=== PATIENT | female | born 1995 | race Caucasian/White ===

== ENCOUNTER 2016-11-06 21:49 | Emergency (ER) | payer OTHER ==
[2016-11-06 22:33] LABS: SPECIFIC GRAVITY 1.025 (1.001-1.030); URINE BILIRUBIN NEGATIVE (NEGATIVE); URINE BLOOD 4+ (NEGATIVE); URINE GLUCOSE (UA) NEGATIVE (NEGATIVE); URINE LEUKOCYTE ESTERASE TRACE (NEGATIVE); URINE NITRITE NEGATIVE (NEGATIVE); URINE PROTEIN 2+ (NEGATIVE); URINE UROBILINOGEN NORMAL (0-1 mg/dl)
[2016-11-06 22:35] LABS: HCG,QUALITATIVE URINE POSITIVE
[2016-11-06 22:43] LABS: URINE APPEARANCE CLOUDY; URINE COLOR BROWN
[2016-11-06 22:44] LABS: URINE AMORPHOUS SEDIMENT 1+; URINE BACTERIA FEW; URINE EPITHELIAL CELLS 0-2 /hpf; URINE RBC 50-60 /hpf; URINE WBC 0-2 /hpf
== END 2016-11-07 01:44 | disposition home or self-care (01) ==
LOC: ED 21:49
DX: O46.91 Antepartum hemorrhage, unspecified, first trimester (principal); Z3A.01 Less than 8 weeks gestation of pregnancy